=== PATIENT | male | born 1970 | race Caucasian/White ===

== ENCOUNTER 2017-12-12 14:08 | Emergency (ER) | payer OTHER ==
--- NOTE | 2017-12-12 15:08 | ED Physician Documentation ---
Lower Extremity Problem - HPI Stated Complaint: Left Knee Injury Chief Complaint: Lower Extremity Injury Location of Injury: L knee Onset: days ago (1) Timing: still present, worse Duration: constant Recent Injury: Yes (Tree fell on knee . Swelling continues and this is worrisome. Denies pain ) Where: home Severity: mild Quality: swelling. denies: pain Exacerbated By: nothing Relieved By: nothing Further Comments: yes (He states a tree fell on the left lateral side of the left knee and he did pull his knee out from under the tree. He states the area is not painful but swelling continues which concerns him. No redness) - ROS CONST: no problems MS/SKIN/LYMPH: leg swelling. denies: calf pain, joint pain EYES/ENT: none NERUO/PSYCH: denies: headache - PAST HX Past History: other PE Risk Factors: other Surgeries/Procedures: other Immunizations: referred to PCP Allergies/Adverse Reactions: Allergies Allergy/AdvReac Type Severity Reaction Status Date / Time No Known Allergies Allergy Unverified 12/12/17 14:32 Home Medications: Ambulatory Orders Medication Instructions Recorded NK [NK] 12/12/17 - SOCIAL HX Smoking History: cigarettes Alcohol Use: none Drug Use: none - FAMILY HX Family History: none - VITAL SIGNS Vital Signs: Vital Signs Temp Pulse Resp BP Pulse Ox 98 F 72 18 120/68 98 12/12/17 14:10 12/12/17 15:42 12/12/17 15:42 12/12/17 15:42 12/12/17 15:42 - REVIEWED ASSESSMENTS Nursing Assessment Reviewed: Yes Vitals Reviewed: Yes ED Results Lab/Radiology - Radiology Radiology Impressions: Xray: Normal - no fracture DG - Orders Orders: ED Orders Category Date Time Status Chato Wrap Affected Extremity 1T Care 12/12/17 15:35 Active KNEE 3 VIEWS [RAD] Stat Exams 12/12/17 Taken Lower Extremity Problem - EXAM General Appearance: no distress Knees: right: normal inspection, normal range of motion, no evidence of injury, left: bone tenderness (knee ), deformity (swelling patella ), swelling, bilateral: non-tender, other (Pulses + Sensation + Pain on left with flexion. "mild" per pt ), N/A: joint effusion, nodules Neuro/Tendon: normal sensation, normal motor functions, normal tendon functions EENT: eye inspection normal, JASBIR RESPIRATORY: no resp distress, chest non-tender, breath sounds normal CVS: reg rate & rhythm, heart sounds normal, equal pulses, no murmur VASCULAR: no vascular compromise NEURO/PSYCH: oriented X3, CN's nml as tested, motor nml, sensation nml, mood/ affect nml SKIN: warm/dry Discharge Clincal Impression: Knee pain, left Qualifiers: Chronicity: acute Qualified Code(s): M25.562 - Pain in left knee Referrals: Primary Doctor,No [Primary Care Provider] - 2 Days Comments: Ibuprofen or Tylenol as needed for pain Ice Elevate Rest See PCP Wednesday for possible MRI Condition: Stable Disposition: HOME, SELF-CARE Decision to Admit: NO Date of Decison to Admit: 12/12/17 Decision Time: 15:27
--- NOTE | 2017-12-12 15:37 | Diagnostic Imaging Report ---
[facility] [address] [id number] Report Submission Date: Dec 12, 2017 3:23:46 PM [employer]OR [employer] Patient Study Name: RAMON ZIMMERMAN Date: Dec 12, 2017 2:51:20 PM [employer] Modality Type: CR Gender: M Description: LOWER EXTREMITY : 70 Institution: [facility] Physician: DOUGIE DE LA CRUZ Electronically signed on Dec 12, 2017 3:23:46 PM [employer] by: Bill CASTELLON
[2017-12-12 15:44] VITALS: BP 120/68
--- NOTE | 2018-01-07 10:41 | Diagnostic Imaging Report ---
DOUGIE DE LA CRUZ~ [facility] [address] 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 COMPARISON: None available. ~ TECHNIQUE: 3 views of the left knee were performed. FINDINGS: No fracture or significant joint space narrowing about the left knee. No significant lateral patellar tilt or subluxation on the sunrise view. ~There is chondrocalcinosis of the medial meniscus. ~There is likely a moderate joint effusion. IMPRESSION: 1. ~No acute fracture of the left knee. 2. ~Chondrocalcinosis of the medial meniscus. 3. ~Probable moderate joint effusion. ~If internal derangement is suspected, consider follow-up noncontrast MRI of the left knee for evaluation of the ligaments and menisci. ~ Electronically signed on Dec 12, 2017 3:23:46 PM MEDICAL DELIVERY DRIVER by: Bill CASTELLON
--- NOTE | 2018-01-07 13:56 | Diagnostic Imaging Report ---
DOUGIE DE LA CRUZ [facility] [address] [facility] [address] 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 COMPARISON: None available. TECHNIQUE: 3 views of the left knee were performed. FINDINGS: No fracture or significant joint space narrowing about the left knee. No significant lateral patellar tilt or subluxation on the sunrise view. There is chondrocalcinosis of the medial meniscus. There is likely a moderate joint effusion. IMPRESSION: 1. No acute fracture of the left knee. 2. Chondrocalcinosis of the medial meniscus. 3. Probable moderate joint effusion. If internal derangement is suspected, consider follow-up noncontrast MRI of the left knee for evaluation of the ligaments and menisci. Electronically signed on Dec 12, 2017 3:23:46 PM CRAFT COORDINATOR by: Bill CASTELLON
== END 2017-12-12 15:42 | disposition home or self-care (01) ==
LOC: ED 14:08
DX: M25.562 Pain in left knee (principal)
CPT/HCPCS: 73562; 99282